=== PATIENT | female | born 1960 | race Two or more races ===

== ENCOUNTER 2024-02-10 23:40 | Emergency (ER) | payer OTHER ==
[~2024-02-10] VITALS: Ht 162.6 cm; Wt 75.0 kg
[2024-02-10 23:57] VITALS: BP 167/96; PULSE 74; RESP 18; TEMP 98.3; O2SAT 97
[2024-02-11] MEDS: DexAMETHasone SOD PHOS 10MG/1ML VIAL INJ IM ONE (03:25)
[2024-02-11 03:43] LABS: Urine Amorphous Crystal FEW /hpf (None Seen); Urine Bacteria FEW /hpf (None Seen); Urine Blood Negative /uL (Negative); Urine Budding Yeast FEW /hpf (None Seen); Urine Clarity Turbid (Clear); Urine Color Light-Yellow (Yellow); Urine Protein, UAD Negative (Negative); Urine Specific Gravity 1.017 (1.001-1.035); Urine Urobilinogen Normal (Negative); Urine WBC 5 /hpf (0 - 5)
[2024-02-11] MEDS ORDERED: AMOX500C2 PO (03:49)
== END 2024-02-11 04:02 | disposition home or self-care (01) ==
LOC: ER 23:40
DX: J03.90 Acute tonsillitis, unspecified (principal); I10 Essential (primary) hypertension
CPT/HCPCS: 81001; 96372; 99283; J1100